=== PATIENT | female | born 1945 | race Caucasian/White ===

== ENCOUNTER 2018-01-29 19:58 | Emergency (ER) | payer MEDICARE, OTHER ==
--- NOTE | 2018-01-29 20:26 | PDOC ---
History of Present Illness - General Stated Complaint: SOB - History of Present Illness Initial Comments: The patient is a 72F w/ a history of COPD who presents for evaluation of 1 day of shortness of breath. The patient reports that she was feeling increasingly short of breath today especially with exertion. So she decided to call EMS. She denies chest pain, BORRERO, vision changes, dizziness, change in chronic cough, fevers/chills, dysuria, hematuria, N/V/C/D. Reports living alone. Is not on home O2. Denies having a PCP. Had an inhaler at home but it ran out 2 weeks because she cannot afford the refill. Denies currently feeling short of breath or having any symptoms at this time. 01/29/18 20:16 Past History - Past Medical History Allergies/Adverse Reactions: Allergies Allergy/AdvReac Type Severity Reaction Status Date / Time No Known Allergies Allergy Verified 01/29/18 20:23 Home Medications: Ambulatory Orders Tiotropium [place] [Spiriva] 1 inh PO PRN PRN 04/14/13 Albuterol Sulfate Inhaler - [Ventolin Hfa Inhaler -] 1 - 2 inh PO Q4H PRN #1 inhaler 01/29/18 COPD: Yes Thyroid Disease: Yes (hypo) - Suicide/Smoking/Psychosocial Hx Smoking History: Current every day smoker Number of Cigarettes Smoked Daily: 12 Review of Systems - Review of Systems Able to Perform ROS?: Yes Comments:: GENERAL/CONSTITUTIONAL: No fever or chills. No weakness HEAD, EYES, EARS, NOSE AND THROAT: No change in vision. No ear pain or discharge. No sore throat CARDIOVASCULAR: No chest pain; +shortness of breath RESPIRATORY: +chronic cough; denies hemoptysis GASTROINTESTINAL: No nausea, vomiting, diarrhea or constipation GENITOURINARY: No dysuria, frequency, or change in urination MUSCULOSKELETAL: No joint or muscle swelling or pain. No neck or back pain SKIN: No rash NEUROLOGIC: No headache, vertigo, loss of consciousness, or change in strength/ sensation ENDOCRINE: No increased thirst. No abnormal weight change HEMATOLOGIC/LYMPHATIC: No anemia, easy bleeding, or history of blood clots ALLERGIC/IMMUNOLOGIC: No hives or skin allergy 01/29/18 20:17 Is the patient limited Danish proficient: No *Physical Exam - Vital Signs Vital Signs Temp Pulse Resp BP Pulse Ox 99.0 F 63 20 147/78 96 01/29/18 20:24 01/29/18 20:24 01/29/18 20:24 01/29/18 20:24 01/29/18 20:24 01/29/18 20:32 - Physical Exam Comments: GENERAL: Awake, alert, and fully oriented, in no acute distress HEAD: No signs of trauma, normocephalic, atraumatic EYES: PERRLA, EOMI, sclera anicteric, conjunctiva clear ENT: Hearing grossly normal, nares patent, oropharynx clear without exudates. Moist mucosa LUNGS: No distress, speaks full sentences, clear to auscultation bilaterally however diffuse decreased movement HEART: Regular rate and rhythm, normal S1 and S2, no murmurs appreciated, peripheral pulses normal and equal bilaterally ABDOMEN: Soft, nontender, normoactive bowel sounds. No guarding, no rebound EXTREMITIES : Normal inspection, Normal range of motion, no edema. No clubbing or cyanosis NEUROLOGICAL: Cranial nerves II through XII grossly intact. Normal speech, no focal sensorimotor deficits SKIN: Warm, Dry, normal turgor, no rashes or lesions noted 01/29/18 20:17 ED Treatment Course - LABORATORY CBC & Chemistry Diagram: 01/29/18 20:50 01/29/18 20:50 Medical Decision Making - Medical Decision Making The patient is a 72F w/ a history of COPD and 1/2ppd smoking history who presents for 1 day of gradual onset shortness of breath ED Course CMP, CBC, cardiac enzymes Documented history of hypothyroidism, but pt denies and is not on meds -TSH CXR ECG 01/29/18 20:29 Labs pending ECG w/ sinus davidson, similar to previous Patient denies current dyspnea. SpO2 95% on room air 01/29/18 21:01 No leukocytosis No anemia 01/29/18 21:17 I have transferred care of the patient to Dr. Leonardo and discussed the clinical presentation, work-up and ED course thus far. *DC/Admit/Observation/Transfer Diagnosis at time of Disposition: Shortness of breath - Discharge Dispostion Disposition: AGAINST MEDICAL ADVICE - Prescriptions Prescriptions: Albuterol Sulfate Inhaler - [Ventolin Hfa Inhaler -] 1 - 2 inh PO Q4H PRN #1 inhaler PRN Reason: Wheezing - Referrals Referrals: [facility] [place] [facility] [place] [Provider Group] - Patient Instructions Printed Discharge Instructions: DI for Chronic Obstructive Pulmonary Disease Additional Instructions: You were evaluated today in the ER for your wheezing. You elected to leave against medical advice. We sent a prescription for a replacement inhaler to your pharmacy. Take all medications as proscribed. Please follow-up with primary care provider tomorrow for further evaluation. Return to ER if any further breathing difficulty, fevers, chills, or other concerning symptoms. - Post Discharge Activity
[2018-01-29 20:29] VITALS: BP 147/78; PULSE 63; TEMP 99; BMI 17.3
[2018-01-29 20:59] LABS: BASO % 0.9 % (0-2.0); EOS % 0.7 % (0-4.5); HEMATOCRIT 31.7 % (32.4-45.2); HEMOGLOBIN 11.2 GM/dL (10.7-15.3); LYMPH % 17.7 % (8-40); MCH 34.9 pg (25.7-33.7); MCHC 35.2 g/dl (32.0-36.0); MEAN CELL VOLUME 99.2 fl (80-96); MEAN PLT VOLUME 8.9 fl (7.5-11.1); MONO % 11.5 % (3.8-10.2); NEUT % 69.2 % (42.8-82.8); PLATELET COUNT 284 K/MM3 (134-434); RDW 17.2 % (11.6-15.6); WHITE BLOOD COUNT 4.4 K/mm3 (4.0-10.0)
[2018-01-29 21:42] LABS: ALBUMIN 3.9 g/dl (3.4-5.0); ALK PHOS 78 U/L (45-117); ANION GAP 8 MMOL/L (8-16); BILIRUBIN,TOTAL 0.3 mg/dL (0.2-1); BLOOD UREA NITROGEN 24 mg/dL (7-18); CALCIUM 8.6 mg/dL (8.5-10.1); CHLORIDE 102 mmol/L (98-107); CO2 28 mmol/L (21-32); CREATININE 0.7 mg/dL (0.55-1.3); GLUCOSE,RANDOM 92 mg/dL (74-106); POTASSIUM 4.2 mmol/L (3.5-5.1); SGOT/AST 21 U/L (15-37); SGPT/ALT 21 U/L (13-61); SODIUM 138 mmol/L (136-145); TOT PROT 6.5 g/dl (6.4-8.2)
[2018-01-29] MEDS ORDERED: ALBUTEROL SO4 2.5/IPRATROPIUM 0.5 INH SOL 3 ML VIAL.NEB. NEB ONE (23:11)
--- NOTE | 2018-01-29 23:13 | PDOC ---
*Physical Exam - Vital Signs Last Vital Signs Temp Pulse Resp BP Pulse Ox 99.0 F 63 20 147/78 96 01/29/18 20:24 01/29/18 20:24 01/29/18 20:24 01/29/18 20:24 01/29/18 20:46 ED Treatment Course - LABORATORY CBC & Chemistry Diagram: 01/29/18 20:50 01/29/18 20:50 - ADDITIONAL ORDERS Additional order review: Laboratory Results 01/29/18 20:50 Sodium 138 Potassium 4.2 Chloride 102 Carbon Dioxide 28 Anion Gap 8 BUN 24 H Creatinine 0.7 Creat Clearance w eGFR > 60 Random Glucose 92 Calcium 8.6 Total Bilirubin 0.3 AST 21 ALT 21 Alkaline Phosphatase 78 Creatine Kinase 107 Troponin I < 0.02 Total Protein 6.5 Albumin 3.9 TSH 3.67 01/29/18 20:50 RBC 3.20 L MCV 99.2 H MCHC 35.2 RDW 17.2 H MPV 8.9 Neutrophils % 69.2 Lymphocytes % 17.7 Monocytes % 11.5 H Eosinophils % 0.7 Basophils % 0.9 Medical Decision Making - Medical Decision Making 01/29/18 23:[address] Murillo. 01/29/18 23:28 Patient elected to leave AMA despite discussion of risks/benefits. Patient signed AMA forms. Ventolin inhaler Rx sent to pharmacy. *DC/Admit/Observation/Transfer Diagnosis at time of Disposition: Shortness of breath - Discharge Dispostion Disposition: AGAINST MEDICAL ADVICE - Prescriptions Prescriptions: Albuterol Sulfate Inhaler - [Ventolin Hfa Inhaler -] 1 - 2 inh PO Q4H PRN #1 inhaler PRN Reason: Wheezing - Referrals Referrals: [facility] [place] [facility] [place] [Provider Group] - Patient Instructions Printed Discharge Instructions: DI for Chronic Obstructive Pulmonary Disease Additional Instructions: You were evaluated today in the ER for your wheezing. You elected to leave against medical advice. We sent a prescription for a replacement inhaler to your pharmacy. Take all medications as proscribed. Please follow-up with primary care provider tomorrow for further evaluation. Return to ER if any further breathing difficulty, fevers, chills, or other concerning symptoms. - Post Discharge Activity
--- NOTE | 2018-01-30 01:36 | PDOC ---
Attending Attestation - Resident Resident Name: Baldev Murillo - ED Attending Attestation I have performed the following: I have examined & evaluated the patient, The case was reviewed & discussed with the resident, I agree w/resident's findings & plan, Exceptions are as noted - HPI HPI: 01/30/18 01:33 Patient is a 72 year old female with a significant past medical history of COPD , Thyroid disease, who presents to the ED with complaints of shortness of breath that began yesterday afternoon. Patient reports experiencing shortness of breath that she states gradually increased over time and with exertion. She reports having an inhaler at home but states it has been empty for 2 weeks as she is unable to afford to refill it. States she often has symptoms like this that resolve with her ventolin. Patient reports resolution of shortness of breath upon arrival to ED. Denies chest pain, LE edema or calf pain. Denies new cough. Denies nausea, vomiting. Denies fevers, chills. Denies contact with sick individuals, out of state travelling. Denies dysuria, hematuria. Denies diarrhea, constipation. Denies any other symptoms. Allergies: None Social History:Smokes 1/2 PPD No alcohol. No illicit drugs. Surgical History: None PMD: None - Physicial Exam PE: 01/30/18 01:36 GENERAL: Awake, alert, and fully oriented, in no acute distress HEAD: No signs of trauma EYES: PERRLA, EOMI, sclera anicteric, conjunctiva clear ENT: Nares patent, oropharynx clear without exudates. Moist mucosa NECK: Normal ROM, supple, no lymphadenopathy, JVD, or masses LUNGS: BS slightly diminished throughout. No wheezes, and no crackles HEART: Regular rate and rhythm, normal S1 and S2, no murmurs, rubs or gallops ABDOMEN: Soft, nontender, normoactive bowel sounds. No guarding, no rebound. No masses EXTREMITIES: Normal range of motion, no edema. No clubbing or cyanosis. No cords, erythema, or tenderness NEUROLOGICAL: Normal speech, cranial nerves intact, negative pronator drift, 5/ 5 strength in all 4 extremities, normal sensation to light touch in all 4 extremities, normal cerebellar exam, normal gait, normal reflexes and tone SKIN: Warm, Dry, normal turgor, no rashes or lesions noted. - Medical Decision Making 01/30/18 01:38 72yo F hx COPD presents to the ED with progressive SOB since yesterday. Vitals wnl. Exam with some diminished BS b/l, otherwise wnl. DDx includes COPD vs PNA vs ACS vs PE. Most likely COPD exacerbation given diminished BS. Plan was to treat with duonebs and work the pt up for ACS, PE, PNA but she states she would like to go home as she feels better and has no symptoms. The patient is clinically sober, free from distracting injury, appears to have intact insight and judgment and reason and in my opinion has the capacity to make decisions. The patient presents with SOB. I have explained that I am concerned that this may represent COPD or ACS or PE or PNA; she has verbalized an understanding of my concerns. I have told the patient that while her labs were normal, she could still have ACS or PE or PNA. I have discussed the need for more lab work to get more information about potential causes of the patient s SOB. I have told the patient that if she leaves and has SOB, she could get much worse, could become critically ill, and could possibly become disabled or . The patient is not willing to undergo further workup. She is refusing any further care and is leaving against medical advice. I am unable to convince the patient to stay, I have asked her to return as soon as possible to complete her evaluation. I have refilled her ventilin. Pt to f/u with her PMD within 1-2 days. I have answered all their questions. Heart Score/ECG Review #1 01/30/18 01:45 Twelve-lead EKG was performed and reviewed by me. Sinus bradycardia, rate 56. Normal axis and intervals. No ST elevations. T wave flattening in aVL and V2. Q waves in 3 and aVF. When compared to EKG from 09/29/2014, no significant changes.
--- NOTE | 2018-01-30 10:28 | EKG ---
Test Reason : Blood Pressure : / mmHG Vent. Rate : 056 BPM Atrial Rate : 056 BPM P-R Int : 156 ms QRS Dur : 084 ms QT Int : 460 ms P-R-T Axes : 052 067 076 degrees QTc Int : 443 ms SINUS BRADYCARDIA OTHERWISE NORMAL ECG WHEN COMPARED WITH ECG OF 29-SEP-2014 09:27, NO SIGNIFICANT CHANGE WAS FOUND Confirmed by COBY LEACH MD ([id number]) on 01/30/2018 10:28:26 AM Referred By: Confirmed By:COBY LEACH MD
== END 2018-01-29 23:42 | disposition left against medical advice (07) ==
LOC: JER 19:58
DX: R06.02 Shortness of breath (principal); J44.9 Chronic obstructive pulmonary disease, unspecified; F17.210 Nicotine dependence, cigarettes, uncomplicated
CPT/HCPCS: 36415; 71045-TC-FY; 80053; 82550; 84443; 84484; 85025; 93005; 93010; 99284-25